=== PATIENT | female | born 1940 | race Caucasian/White ===

== ENCOUNTER 2016-03-01 13:00 | Outpatient (RCR) | payer MEDICARE | END 2016-04-16 | disposition home or self-care (01) | LOC: PT 13:00 | PROVIDERS: ATTEND Nurse Practitioner Family | DX: M47.22 Other spondylosis with radiculopathy, cervical region (principal) | CPT/HCPCS: 97001; 97012; 97035; 97110; G8984; G8985; G8986 ==

== ENCOUNTER 2016-04-02 08:29 | Emergency (ER) | payer MEDICARE ==
[~2016-04-02] VITALS: Ht 165.1 cm; Wt 66.8 kg
[~2016-04-02 08:29] MED LIST: CHLO4TAB PO; CTLP20T PO; ESCI20TA PO; ESTR1TAB24 PO; LSNP20T PO; MELO-255 PO; MELO7.5T PO; MULT-35 PO; NABU750T PO; PROM25TA5 PO; TRAZ100T92 PO
[2016-04-02] MEDS ORDERED: HYDROmorphone 1 MG/ML (DILAUDID) SYRINGE IM ONE (08:45)
[2016-04-02] MEDS ORDERED: ONDANSETRON 4 MG (ZOFRAN) ORAL DISSOLVE TAB PO ONE (08:45)
[2016-04-02] MEDS ORDERED: FLUT9.9S NS (09:03)
[2016-04-02 10:01] VITALS: BP 112/76
--- NOTE | 2016-04-02 10:02 | Diagnostic Imaging Report ---
INDICATION: Pain after a fall. Two views of the left shoulder were obtained. FINDINGS: The alignment is normal. There is no fracture or dislocation. The left lung is clear. Soft tissues are unremarkable. IMPRESSION: No focal abnormality in the left shoulder Dictated by: Dictated on workstation # [id number]
--- NOTE | 2016-04-02 10:04 | Diagnostic Imaging Report ---
INDICATION: Fall, left hip pain FINDINGS: Both hips are located. There is moderate articular joint space narrowing within both hips. There is no diastases of the pubic symphysis or the SI joints. Pelvic ring appears intact. Dedicated images of the left hip demonstrate no cortical disruption of the left femur. There are advanced degenerative features demonstrated within the lower lumbar spine. IMPRESSION: 1. Moderate bilateral hip osteoarthritic changes. There is no evidence of dislocation or plain film evidence of acute fracture. 2. Degenerative features are present at the SI joints, pubic symphysis as well as advanced endplate arthropathic change within the facets within the visualized portion of the lumbar spine. Dictated by: Dictated on workstation # [id number]
--- NOTE | 2016-04-02 10:06 | Diagnostic Imaging Report ---
INDICATION: Pain after a fall. Two views of the left humerus were obtained. FINDINGS: The alignment is normal. There is no fracture or dislocation. Soft tissues are unremarkable. IMPRESSION: No acute fracture or dislocation Dictated by: Dictated on workstation # [id number]
[2016-04-02] MEDS ORDERED: HYDR-3702 PO (10:28)
== END 2016-04-02 10:47 | disposition home or self-care (01) ==
LOC: ED 08:31
DX: S40.012A Contusion of left shoulder, initial encounter (principal); S70.02XA Contusion of left hip, initial encounter; W00.0XXA Fall on same level due to ice and snow, initial encounter; Y92.008 Other place in unspecified non-institutional (private) residence as the place of occurrence of the external cause
CPT/HCPCS: 73030; 73060; 73502; 96372; 99283; A9270; J1170

== ENCOUNTER → 2016-04-13 | Outpatient (CLI) | payer MEDICARE | LOC: RAD 12:13 | PROVIDERS: ATTEND Nurse Practitioner Family | DX: M25.512 Pain in left shoulder (principal); M75.122 Complete rotator cuff tear or rupture of left shoulder, not specified as traumatic; M19.012 Primary osteoarthritis, left shoulder | CPT/HCPCS: 73218 ==

== ENCOUNTER → 2016-05-23 | Outpatient (REF) | payer MEDICARE ==
[2016-05-23 13:27] LABS: ANION GAP 14.4 MEQ/L (3-15)
== END ==
LOC: LAB 12:49
PROVIDERS: ATTEND Family Medicine
DX: I10 Essential (primary) hypertension (principal)
CPT/HCPCS: 80048

== ENCOUNTER 2016-06-30 22:48 | Emergency (ER) | payer MEDICARE ==
[~2016-06-30] VITALS: Ht 165.1 cm; Wt 65.9 kg
[~2016-06-30 22:48] MED LIST changes: +FLUT9.9S NS; +HYDR-3702 PO
--- OUTSIDE RECORDS SUMMARY | 2016-06-30 22:53 | XMS REPORT | Continuity of Care Document ---
Author Author [facility] Organization [facility] Address Unknown Phone Unavailable Allergies Active Description Code Type Severity Reaction Onset Reported/Identified Relationship to Patient Clinical Status Yes codeine 1550 Ingredient mild to moderate syncope~ Nausea / Vomiting 11/16/2014 Yes codeine [id number] Drug Allergy Unknown N/A 04/02/2016 Medications Problems Date Dx Coded Attending Type Code Diagnosis Diagnosed By 02/15/1627 DARLEEN MARTINEZ APRN Ot 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 RADICULOPATHY, CE 02/15/1627 DARLEEN MARTINEZ APRN Ot R29.898 OTH SYMPTOMS AND SIGNS INVOLVING THE MUS 03/24/2012 Ot 789.06 03/24/2012 Ot V14.5 03/24/2012 Ot V58.69 07/10/2012 Ot 840.4 07/10/2012 Ot E928.9 07/10/2012 Ot V57.1 08/06/2012 Ot 272.4 08/06/2012 Ot 300.00 08/06/2012 Ot 477.9 08/06/2012 Ot 715.96 08/06/2012 Ot V58.69 08/06/2012 Ot V76.51 02/28/2014 BARBARA HUGO MD Ot 793.89 08/28/2014 Ot 719.41 08/28/2014 Ot 473.8 08/28/2014 Ot 793.81 08/28/2014 Ot V76.12 08/28/2014 Ot 611.72 08/28/2014 Ot 610.1 08/28/2014 Ot 610.2 08/28/2014 Ot 610.8 08/28/2014 Ot 611.89 08/28/2014 Ot 793.81 08/28/2014 Daily Silvano ARCE Ot 715.96 08/28/2014 Daily Silvano ARCE Ot 719.06 08/28/2014 BARBARA HUGO MD Ot 793.89 08/28/2014 LICHTY MD, BARBARA M Ot 793.89 08/28/2014 RHONDA ARCE, PLATT R Ot 401.9 08/28/2014 RHONDA ARCE, PLATT R Ot 780.4 08/28/2014 RHONDA ARCE, PLATT R Ot 790.99 09/12/2014 OANH ARCE, BARBARA M Ot 793.89 09/23/2014 OANH ARCE, BARBARA M Ot 272.4 09/23/2014 OANH ARCE, BARBARA M Ot 733.90 09/23/2014 OANH ARCE, BARBARA M Ot V82.81 11/12/2014 MICHELLE DARLEEN COAT PADDER Ot 401.9 11/27/2014 MICHELLE [facility] COAT PADDER Ot 401.9 11/30/2014 Daily, Silvano 715.36 Osteoarthrosis, localized, not specified whether primary or secondary, involving lower leg 12/02/2014 MICHELLE DARLEEN L COAT PADDER Ot 401.9 12/16/2014 Daily , Silvano Han Ot V43.65 12/16/2014 Daily , Silvano Han Ot V54.81 12/16/2014 Daily , Silvano Han Ot V57.1 01/08/2015 Daily , Silvano Han Ot M17.12 01/08/2015 Daily , Silvano C Ot Z98.89 01/28/2015 Daily, Silvano M17.11 Unilateral Primary Osteoarthritis, Right Knee 01/29/2015 OANH ARCE, BARBARA M Ot E78.5 01/29/2015 OANH ARCE, BARBARA M Ot I10 03/15/2015 Daily Silvano ARCE C Ot M17.11 03/15/2015 Daily , Silvano C Ot Z96.651 03/22/2015 Daily Silvano ARCE C Ot M17.11 03/22/2015 Daily , Silvano C Ot Z96.651 03/22/2015 Daily , Silvano C Ot M17.11 03/22/2015 Daily , Silvano Han Ot Z96.651 03/23/2015 Daily Silvano ARCE Ot M17.11 03/23/2015 Daily Silvano ARCE Ot Z96.651 04/01/2015 Daily Silvano ARCE Ot M17.11 04/01/2015 Daily , Silvano Han Ot Z96.651 04/25/2015 Daily Silvano ARCE Ot M17.11 UNILATERAL PRIMARY OSTEOARTHRITIS, RIGHT 04/25/2015 Daily Silvano ARCE Ot Z47.1 AFTERCARE FOLLOWING JOINT REPLACEMENT TAVARES 04/25/2015 Daily Silvano ARCE Ot Z96.651 PRESENCE OF RIGHT ARTIFICIAL KNEE JOINT 07/16/2015 WILGERS, DARLEEN L COAT PADDER Ot R73.9 HYPERGLYCEMIA, UNSPECIFIED 07/20/2015 WILGERS, DARLEEN L COAT PADDER Ot I10 ESSENTIAL (PRIMARY) HYPERTENSION 07/20/2015 WILGERS, DARLEEN L COAT PADDER Ot R73.9 HYPERGLYCEMIA, UNSPECIFIED 07/21/2015 WILGERS, DARLEEN L COAT PADDER Ot I10 ESSENTIAL (PRIMARY) HYPERTENSION 07/21/2015 WILGERS, DARLEEN L COAT PADDER Ot R73.9 HYPERGLYCEMIA, UNSPECIFIED 07/21/2015 WILGERS, DARLEEN L COAT PADDER Ot I10 ESSENTIAL (PRIMARY) HYPERTENSION 07/21/2015 WILGERS, DARLEEN L COAT PADDER Ot R73.9 HYPERGLYCEMIA, UNSPECIFIED 08/05/2015 WILGERS, DARLEEN L COAT PADDER Ot I10 ESSENTIAL (PRIMARY) HYPERTENSION 08/05/2015 WILGERS, DARLEEN L COAT PADDER Ot R73.9 HYPERGLYCEMIA, UNSPECIFIED 12/17/2015 WILGERS, DARLEEN L COAT PADDER Ot 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 RADICULOPATHY, CE 12/17/2015 WILGERS, DARLEEN L COAT PADDER Ot R29.898 OTH SYMPTOMS AND SIGNS INVOLVING THE MUS 01/03/2016 WILGERS, DARLEEN L COAT PADDER Ot 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 RADICULOPATHY, CE 01/05/2016 OANH ARCE, BARBARA Rangel Ot M48.02 SPINAL STENOSIS, CERVICAL REGION 01/05/2016 ONAH ARCE, BARBARA Rangel Ot M54.12 RADICULOPATHY, CERVICAL REGION 01/07/2016 WILGERS, DARLEEN L COAT PADDER Ot 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 RADICULOPATHY, CE 01/07/2016 WILGERS, DARLEEN L COAT PADDER Ot 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 RADICULOPATHY, CE 01/07/2016 WILGERS, DARLEEN L COAT PADDER Ot R29.898 OTH SYMPTOMS AND SIGNS INVOLVING THE MUS 01/07/2016 OANH ARCE, BARBARA Rangel Ot M48.02 SPINAL STENOSIS, CERVICAL REGION 01/07/2016 OANH ARCE, BARBARA Rangel Ot M54.12 RADICULOPATHY, CERVICAL REGION 01/11/2016 WILGERS, DARLEEN L COAT PADDER Ot 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 RADICULOPATHY, CE 01/11/2016 WILGERS, DARLEEN L COAT PADDER Ot R29.898 OTH SYMPTOMS AND SIGNS INVOLVING THE MUS 01/19/2016 WILGERS, DARLEEN L COAT PADDER Ot 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 RADICULOPATHY, CE 01/21/2016 WILGERS, DARLEEN L COAT PADDER Ot 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 RADICULOPATHY, CE 01/24/2016 OANH ARCE, BARBARA Rangel Ot M48.02 SPINAL STENOSIS, CERVICAL REGION 01/24/2016 OANH ARCE, BARBARA Rangel Ot M50.10 CERVICAL DISC DISORDER W RADICULOPATHY, 01/25/2016 OANH ARCE, BARBARA Rangel Ot M48.02 SPINAL STENOSIS, CERVICAL REGION 01/25/2016 OANH ARCE, BARBARA Rangel Ot M54.12 RADICULOPATHY, CERVICAL REGION 01/26/2016 WILGERS, DARLEEN L COAT PADDER Ot 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 RADICULOPATHY, CE 01/27/2016 WILGERS, DARLEEN L COAT PADDER Ot 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 RADICULOPATHY, CE 01/27/2016 WILGERS, DARLEEN L COAT PADDER Ot 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 RADICULOPATHY, CE 02/01/2016 WILGERS, DARLEEN L COAT PADDER Ot E78.5 HYPERLIPIDEMIA, UNSPECIFIED 02/01/2016 WILGERS, DARLEEN L COAT PADDER Ot R53.83 OTHER FATIGUE 02/01/2016 WILGERS, DARLEEN L COAT PADDER Ot E78.5 HYPERLIPIDEMIA, UNSPECIFIED 02/01/2016 WILGERS, DARLEEN L COAT PADDER Ot R53.83 OTHER FATIGUE 02/01/2016 WILGERS, DARLEEN L COAT PADDER Ot E78.5 HYPERLIPIDEMIA, UNSPECIFIED 02/01/2016 WILGERS, DARLEEN L COAT PADDER Ot R53.83 OTHER FATIGUE 02/02/2016 WILGERS, DARLEEN L COAT PADDER Ot E78.5 HYPERLIPIDEMIA, UNSPECIFIED 02/02/2016 WILGERS, DARLEEN L COAT PADDER Ot R53.83 OTHER FATIGUE 02/03/2016 WILGERS, DARLEEN L COAT PADDER Ot 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 RADICULOPATHY, CE 02/04/2016 WILGERS, DARLEEN L COAT PADDER Ot E78.5 HYPERLIPIDEMIA, UNSPECIFIED 02/04/2016 WILGERS, DARLEEN L COAT PADDER Ot F32.9 MAJOR DEPRESSIVE DISORDER, SINGLE EPISOD 02/04/2016 WILGERS, DARLEEN L COAT PADDER Ot F41.8 OTHER SPECIFIED ANXIETY DISORDERS 02/04/2016 WILGERS, DARLEEN L COAT PADDER Ot I95.9 HYPOTENSION, UNSPECIFIED 02/04/2016 WILGERS, DARLEEN L COAT PADDER Ot R53.83 OTHER FATIGUE 02/09/2016 OANH ARCE, BARBARA Rangel Ot M48.02 SPINAL STENOSIS, CERVICAL REGION 02/09/2016 OANH ARCE, BARBARA Rangel Ot M50.10 CERVICAL DISC DISORDER W RADICULOPATHY, 02/13/2016 WILGERS, DARLEEN L COAT PADDER Ot 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 RADICULOPATHY, CE 02/16/2016 WILGERS, DARLEEN L COAT PADDER Ot 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 RADICULOPATHY, CE 02/17/2016 WILGERS, DARLEEN L COAT PADDER Ot 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 RADICULOPATHY, CE 02/17/2016 WILGERS, DARLEEN L COAT PADDER Ot 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 RADICULOPATHY, CE 02/22/2016 WILGERS, DARLEEN L COAT PADDER Ot E78.5 HYPERLIPIDEMIA, UNSPECIFIED 02/22/2016 WILGERS, DARLEEN L COAT PADDER Ot F32.9 MAJOR DEPRESSIVE DISORDER, SINGLE EPISOD 02/22/2016 WILGERS, DARLEEN L COAT PADDER Ot F41.8 OTHER SPECIFIED ANXIETY DISORDERS 02/22/2016 WILGERS, DARLEEN L COAT PADDER Ot I95.9 HYPOTENSION, UNSPECIFIED 02/22/2016 WILGERS, DARLEEN L COAT PADDER Ot R53.83 OTHER FATIGUE 02/23/2016 WILGERS, DARLEEN L COAT PADDER Ot 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 RADICULOPATHY, CE 02/23/2016 WILGERS, DARLEEN L COAT PADDER Ot 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 RADICULOPATHY, CE 02/29/2016 WILGERS, DARLEEN L COAT PADDER Ot 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 RADICULOPATHY, CE 04/02/2016 SADIA CORDERO MD Ot S40.012A CONTUSION OF LEFT SHOULDER, INITIAL ENCO 04/02/2016 SADIA CORDERO MD Ot S70.02XA CONTUSION OF LEFT HIP, INITIAL ENCOUNTER 04/02/2016 SADIA CORDERO MD Ot W00.0XXA FALL ON SAME LEVEL DUE TO ICE AND SNOW, 04/02/2016 SADIA CORDERO MD Ot Y92.[address] IN [facility] NON-INSTIT[facility] ( PRIVATE) 04/05/2016 SADIA CORDERO MD Ot S40.012A CONTUSION OF LEFT SHOULDER, INITIAL ENCO 04/05/2016 SADIA CORDERO MD Ot S70.02XA CONTUSION OF LEFT HIP, INITIAL ENCOUNTER 04/05/2016 SADIA CORDERO MD Ot W00.0XXA FALL ON SAME LEVEL DUE TO ICE AND SNOW, 04/05/2016 SADIA CORDERO MD Ot Y92.[address] IN [facility] NON[facility]INST[facility] ( PRIVATE) 04/16/2016 WILGERS, DARLEEN L COAT PADDER Ot 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 RADICULOPATHY, CE 04/18/2016 WILGERS, DARLEEN L COAT PADDER Ot M19.012 PRIMARY OSTEOARTHRITIS, LEFT SHOULDER 04/18/2016 WILGERS, DARLEEN L COAT PADDER Ot M25.512 PAIN IN LEFT SHOULDER 04/18/2016 WILGERS, DARLEEN L COAT PADDER Ot M75.122 COMPLETE ROTATR-CUFF TEAR/RUPTR OF LEFT 04/19/2016 WILGERS, DARLEEN L COAT PADDER Ot M19.012 PRIMARY OSTEOARTHRITIS, LEFT SHOULDER 04/19/2016 WILGERS, DARLEEN L COAT PADDER Ot M25.512 PAIN IN LEFT SHOULDER 04/19/2016 WILGERS, DARLEEN L COAT PADDER Ot M75.122 COMPLETE ROTATR-CUFF TEAR/RUPTR OF LEFT 04/19/2016 WILGERS, DARLEEN L COAT PADDER Ot 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 RADICULOPATHY, CE 05/11/2016 WILGERS, DARLEEN L COAT PADDER Ot M19.012 PRIMARY OSTEOARTHRITIS, LEFT SHOULDER 05/11/2016 WILGERS, DARLEEN L COAT PADDER Ot M25.512 PAIN IN LEFT SHOULDER 05/11/2016 WILGERS, DARLEEN L COAT PADDER Ot M75.122 COMPLETE ROTATR-CUFF TEAR/RUPTR OF LEFT 05/25/2016 OANH ARCE, BARBARA Rangel Ot I10 ESSENTIAL (PRIMARY) HYPERTENSION 06/14/2016 Kami, Silvano M75.112 Incomplete Rotator Cuff Tear Or Rupture Of Left Shoulder, Not Specified As Traumatic 06/14/2016 OANH ARCE, BARBARA Rangel Ot I10 ESSENTIAL (PRIMARY) HYPERTENSION Procedures Code Description Performed By Performed On [id number] 12/10/2015 Results Test Result Range CBC - 03/01/12 17:25 MEAN CELL HGB 30.8 pg 27.0-33.0 MEAN CELL HGB CONCENTRATION 33.3 g/dL 32.0-37.0 MEAN CELL VOLUME 92.5 fl 80.0-100.0 RED BLOOD CELL 4.38 m/cumm 4.00-6.00 RED CELL DISTRIBUTION WIDTH 13.2 % 11.0- 15.6 WHITE BLOOD CELL 10.7 k/cumm 5.0-10.0 HEMOGLOBIN 13.5 gm/dL 12.0-16.0 HEMATOCRIT 40.5 % 37.0-47.0 PLATELET COUNT 253 k/cumm 150-400 METABOLIC PANEL, COMPREHN - 03/01/12 17:25 POTASSIUM 3.8 mmol/L 3.5-5.3 EST GFR (MDRD) > 60 mL/min > 59 ANION GAP 8 mmol/L 5-15 GLUCOSE 122 mg/dL 70-99 CALCIUM 9.1 mg/dL 8.5-10.1 BLOOD UREA NITROGEN 22 mg/dL 7-20 CREATININE 0.8 mg/dL 0.6-1.0 SODIUM 139 mmol/L 135-148 CHLORIDE 104 mmol/L 98-110 AST/SGOT 22 Units/L 10-37 ALT/SGPT 20 Units/L < 66 CARBON DIOXIDE 27 mmol/L 21-32 TOTAL PROTEIN 7.1 gm/dL 6.4-8.2 ALBUMIN 4.0 gm/dL 3.4-5.0 BILI TOTAL 0.3 mg/dL 0.0-1.0 ALKALINE PHOSPHATASE TOTAL 93 Units/L 50- 136 TROPONIN I - 03/01/12 17:25 TROPONIN I < 0.02 ng/mL < 0.07 LIPID PANEL - 03/02/12 05:22 CHOLESTEROL/HDL RATIO 3.9 < 5.0 LDL CHOLESTEROL 140 mg/dL < 100 VLDL CHOLESTEROL 23 mg/dL < 30 TRIGLYCERIDES 117 mg/dL < 150 CHOLESTEROL 220 mg/dL < 200 HDL CHOLESTEROL 57 mg/dL > 39 CK MB - 03/02/12 05:22 CK MB 1.6 ng/mL < 4.0 LIPASE - 03/02/12 05:22 LIPASE 157 Units/L 73-393 TROPONIN I - 03/02/12 05:22 TROPONIN I < 0.02 ng/mL < 0.07 CREATINE KINASE (CK/CPK) - 03/02/12 12:38 CREATINE KINASE (CK/CPK) 82 Units/L < 193 CK MB - 03/02/12 12:38 CK MB 1.2 ng/mL < 4.0 TROPONIN I - 03/02/12 12:38 TROPONIN I < 0.02 ng/mL < 0.07 Complete blood count (CBC) with automated white blood cell (WBC) differential - 02/01/16 10:40 Blood automated leukocyte count 6.93 4.0 -11.0 Erythrocytes 4.06 4.00-5.00 12.0-16.0;g/dL 13.3 12.0-15.5 Hematocrit 37.60 35.00-45.00 Automated erythrocyte mean corpuscular volume 93 80-100 Mean corpuscular hemoglobin (MCH) determination 32.8 26.0-34.0 Automated erythrocyte mean corpuscular hemoglobin concentration measurement ( mass/volume) 35.4 31.0-37.0 Erythrocyte distribution width 12.6 11.8 -15.6 Automated blood platelet count 268 150- 450 Automated blood platelet mean volume measurement 9.7 6.0-9.5 Automated neutrophil percentage 64 51- 67 Lymphocytes/100 leukocytes 25 20-46 Automated monocyte percentage 8 3-11 Eosinophil count auto 3 0-4 Automated basophil percentage 1 0-2 Automated blood neutrophil count 4.4 Blood lymphocytes count (number/volume) 1.7 Automated blood monocyte count 0.5 Blood absolute eosinophil count 0.2 Basophils 0.0 Comprehensive metabolic panel - 02/01/16 10:40 Sodium measurement 96 70-110 Carbon dioxide measurement 30 22-29 Serum or plasma anion gap 10.6 3-15 BLOOD UREA NITROGEN 17 7-18 CREATININE SERUM 0.87 0.6-1.2 Brucella species antibody panel (IgG, IgM) 20 10-20 Estimated glomerular filtration rate (GFR) 76.4 Estimated glomerular filtration rate (GFR) non- 63.1 OSMOLALITY,CALCULATED 268 280-300 CALCIUM 9.9 8.8-10.8 Calculated ionized calcium measurement 4.2 3.8-4.6 BILIRUBIN,TOTAL 0.8 0.1-1.0 Serum or plasma alkaline phosphatase measurement 64 38-126 ASPARTATE AMINO TRANSFERASE 17 15-37 ALANINE AMINOTRANSFERASE 24 30-65 Serum or plasma total protein measurement 7.7 6.4-8.5 Serum or plasma albumin measurement 4.2 3.4-5.0 Serum or plasma albumin/globulin mass ratio 1.200 1.1-1.8 THYROID STIMULATING HORMONE* - 02/01/16 10:40 THYROID STIMULATING HORMONE 1.18 0.46- 4.68 LIPID PANEL - 02/01/16 10:40 Cholesterol 218 50-200 HDL Cholesterol 63 40-60 Triglycerides 150 10-150 LDL CHOLESTEROL 125 50-130 VLDL Cholesterol, calc 30 4.00-40.00 Cholesterol.total/Cholesterol.in HDL 3.5 0.0-5.0 BASIC METABOLIC PANEL* - 05/23/16 12:45 Sodium measurement 92 70-110 CARBON DIOXIDE 25 22-29 Serum or plasma anion gap 14.4 3-15 BLOOD UREA NITROGEN 18 7-18 CREATININE SERUM 0.74 0.6-1.2 Brucella species antibody panel (IgG, IgM) 24 10-20 Estimated glomerular filtration rate (GFR) 92.1 Estimated glomerular filtration rate (GFR) non- 76.1 CALCIUM 10.0 8.8-10.8 Encounters ACCT No. Visit Date/Time Discharge Status Pt. Type Provider Facility Loc./Unit Complaint [id number] 03/01/2012 16:11:00 2011 16:56:00 DIS Outpatient Jelena ARCE, Elijah Solares [facility] [id number]
--- OUTSIDE RECORDS SUMMARY | 2016-06-30 22:55 | XMS REPORT | Continuity of Care Document ---
Author Author [facility] Organization [facility] Address Unknown Phone Unavailable Allergies Active Description Code Type Severity Reaction Onset Reported/Identified Relationship to Patient Clinical Status Yes codeine 1550 Ingredient mild to moderate syncope~ Nausea / Vomiting 11/16/2014 Yes codeine [id number] Drug Allergy Unknown N/A 04/02/2016 Medications Problems [...] BARBARA M Ot V82.81 11/12/2014 MICHELLE DARLEEN [employer] DRIVER Ot 401.9 11/27/2014 MICHELLE [facility] [employer] DRIVER Ot 401.9 11/30/2014 Daily, Silvano 715.36 Osteoarthrosis, localized, not specified whether primary or secondary, involving lower leg 12/02/2014 MICHELLE DARLEEN L [employer] DRIVER Ot 401.9 12/16/2014 Daily , Silvano Han [...] ARTIFICIAL KNEE JOINT 07/16/2015 WILGERS, DARLEEN L [employer] DRIVER Ot R73.9 HYPERGLYCEMIA, UNSPECIFIED 07/20/2015 WILGERS, DARLEEN L [employer] DRIVER Ot I10 ESSENTIAL (PRIMARY) HYPERTENSION 07/20/2015 WILGERS, DARLEEN L [employer] DRIVER Ot R73.9 HYPERGLYCEMIA, UNSPECIFIED 07/21/2015 WILGERS, DARLEEN L [employer] DRIVER Ot I10 ESSENTIAL (PRIMARY) HYPERTENSION 07/21/2015 WILGERS, DARLEEN L [employer] DRIVER Ot R73.9 HYPERGLYCEMIA, UNSPECIFIED 07/21/2015 WILGERS, DARLEEN L [employer] DRIVER Ot I10 ESSENTIAL (PRIMARY) HYPERTENSION 07/21/2015 WILGERS, DARLEEN L [employer] DRIVER Ot R73.9 HYPERGLYCEMIA, UNSPECIFIED 08/05/2015 WILGERS, DARLEEN L [employer] DRIVER Ot I10 ESSENTIAL (PRIMARY) HYPERTENSION 08/05/2015 WILGERS, DARLEEN L [employer] DRIVER Ot R73.9 HYPERGLYCEMIA, UNSPECIFIED 12/17/2015 WILGERS, DARLEEN L [employer] DRIVER Ot 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 RADICULOPATHY, CE 12/17/2015 WILGERS, DARLEEN L [employer] DRIVER Ot R29.898 OTH SYMPTOMS AND SIGNS INVOLVING THE MUS 01/03/2016 WILGERS, DARLEEN L [employer] DRIVER Ot 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 RADICULOPATHY, CE 01/05/2016 OANH ARCE, BARBARA Rangel Ot M48.02 SPINAL STENOSIS, CERVICAL REGION 01/05/2016 OANH ARCE, BARBARA Rangel Ot M54.12 RADICULOPATHY, CERVICAL REGION 01/07/2016 WILGERS, DARLEEN L [employer] DRIVER Ot 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 RADICULOPATHY, CE 01/07/2016 WILGERS, DARLEEN L [employer] DRIVER Ot 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 RADICULOPATHY, CE 01/07/2016 WILGERS, DARLEEN L [employer] DRIVER Ot R29.898 OTH SYMPTOMS AND SIGNS INVOLVING THE MUS 01/07/2016 OANH ARCE, BARBARA Rangel Ot M48.02 SPINAL STENOSIS, CERVICAL REGION 01/07/2016 OANH ARCE, BARBARA Rangel Ot M54.12 RADICULOPATHY, CERVICAL REGION 01/11/2016 WILGERS, DARLEEN L [employer] DRIVER Ot 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 RADICULOPATHY, CE 01/11/2016 WILGERS, DARLEEN L [employer] DRIVER Ot R29.898 OTH SYMPTOMS AND SIGNS INVOLVING THE MUS 01/19/2016 WILGERS, DARLEEN L [employer] DRIVER Ot 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 RADICULOPATHY, CE 01/21/2016 WILGERS, DARLEEN L [employer] DRIVER Ot 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 RADICULOPATHY, CE 01/24/2016 OANH ARCE, BARBARA Rangel Ot M48.02 SPINAL STENOSIS, CERVICAL REGION 01/24/2016 OANH ARCE, BARBARA Rangel Ot M50.10 CERVICAL DISC DISORDER W RADICULOPATHY, 01/25/2016 OANH ARCE, BARBARA Rangel Ot M48.02 SPINAL STENOSIS, CERVICAL REGION 01/25/2016 OANH ARCE, BARBARA Rangel Ot M54.12 RADICULOPATHY, CERVICAL REGION 01/26/2016 WILGERS, DARLEEN L [employer] DRIVER Ot 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 RADICULOPATHY, CE 01/27/2016 WILGERS, DARLEEN L [employer] DRIVER Ot 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 RADICULOPATHY, CE 01/27/2016 WILGERS, DARLEEN L [employer] DRIVER Ot 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 RADICULOPATHY, CE 02/01/2016 WILGERS, DARLEEN L [employer] DRIVER Ot E78.5 HYPERLIPIDEMIA, UNSPECIFIED 02/01/2016 WILGERS, DARLEEN L [employer] DRIVER Ot R53.83 OTHER FATIGUE 02/01/2016 WILGERS, DARLEEN L [employer] DRIVER Ot E78.5 HYPERLIPIDEMIA, UNSPECIFIED 02/01/2016 WILGERS, DARLEEN L [employer] DRIVER Ot R53.83 OTHER FATIGUE 02/01/2016 WILGERS, DARLEEN L [employer] DRIVER Ot E78.5 HYPERLIPIDEMIA, UNSPECIFIED 02/01/2016 WILGERS, DARLEEN L [employer] DRIVER Ot R53.83 OTHER FATIGUE 02/02/2016 WILGERS, DARLEEN L [employer] DRIVER Ot E78.5 HYPERLIPIDEMIA, UNSPECIFIED 02/02/2016 WILGERS, DARLEEN L [employer] DRIVER Ot R53.83 OTHER FATIGUE 02/03/2016 WILGERS, DARLEEN L [employer] DRIVER Ot 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 RADICULOPATHY, CE 02/04/2016 WILGERS, DARLEEN L [employer] DRIVER Ot E78.5 HYPERLIPIDEMIA, UNSPECIFIED 02/04/2016 WILGERS, DARLEEN L [employer] DRIVER Ot F32.9 MAJOR DEPRESSIVE DISORDER, SINGLE EPISOD 02/04/2016 WILGERS, DARLEEN L [employer] DRIVER Ot F41.8 OTHER SPECIFIED ANXIETY DISORDERS 02/04/2016 WILGERS, DARLEEN L [employer] DRIVER Ot I95.9 HYPOTENSION, UNSPECIFIED 02/04/2016 WILGERS, DARLEEN L [employer] DRIVER Ot R53.83 OTHER FATIGUE 02/09/2016 OANH ARCE, BARBARA Rangel Ot M48.02 SPINAL STENOSIS, CERVICAL REGION 02/09/2016 OANH ARCE, BARBARA Rangel Ot M50.10 CERVICAL DISC DISORDER W RADICULOPATHY, 02/13/2016 WILGERS, DARLEEN L [employer] DRIVER Ot 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 RADICULOPATHY, CE 02/16/2016 WILGERS, DARLEEN L [employer] DRIVER Ot 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 RADICULOPATHY, CE 02/17/2016 WILGERS, DARLEEN L [employer] DRIVER Ot 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 RADICULOPATHY, CE 02/17/2016 WILGERS, DARLEEN L [employer] DRIVER Ot 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 RADICULOPATHY, CE 02/22/2016 WILGERS, DARLEEN L [employer] DRIVER Ot E78.5 HYPERLIPIDEMIA, UNSPECIFIED 02/22/2016 WILGERS, DARLEEN L [employer] DRIVER Ot F32.9 MAJOR DEPRESSIVE DISORDER, SINGLE EPISOD 02/22/2016 WILGERS, DARLEEN L [employer] DRIVER Ot F41.8 OTHER SPECIFIED ANXIETY DISORDERS 02/22/2016 WILGERS, DARLEEN L [employer] DRIVER Ot I95.9 HYPOTENSION, UNSPECIFIED 02/22/2016 WILGERS, DARLEEN L [employer] DRIVER Ot R53.83 OTHER FATIGUE 02/23/2016 WILGERS, DARLEEN L [employer] DRIVER Ot 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 RADICULOPATHY, CE 02/23/2016 WILGERS, DARLEEN L [employer] DRIVER Ot 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 RADICULOPATHY, CE 02/29/2016 WILGERS, DARLEEN L [employer] DRIVER Ot 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 RADICULOPATHY, CE 04/02/2016 SADIA CORDERO MD Ot S40.012A CONTUSION OF LEFT SHOULDER, INITIAL ENCO 04/02/2016 SADIA CORDERO MD Ot S70.02XA CONTUSION OF LEFT HIP, INITIAL ENCOUNTER 04/02/2016 SADIA CORDERO MD Ot W00.0XXA FALL ON SAME LEVEL DUE TO ICE AND SNOW, 04/02/2016 SADIA CORDERO MD Ot Y92.[address] IN [facility] NON-INSTIT[facility] ( PRIVATE) 04/05/2016 SADIA CORDERO MD Ot S40.012A CONTUSION OF LEFT SHOULDER, INITIAL ENCO 04/05/2016 SADIA CORDERO MD Ot S70.02XA CONTUSION OF LEFT HIP, INITIAL ENCOUNTER 04/05/2016 SADIA CORDERO MD Ot W00.0XXA FALL ON SAME LEVEL DUE TO ICE AND SNOW, 04/05/2016 SADIA CORDERO MD Ot Y92.[address] IN [facility] NON[facility]INSTIT[facility] ( PRIVATE) 04/16/2016 WILGERS, DARLEEN L [employer] DRIVER Ot 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 RADICULOPATHY, CE 04/18/2016 WILGERS, DARLEEN L [employer] DRIVER Ot M19.012 PRIMARY OSTEOARTHRITIS, LEFT SHOULDER 04/18/2016 WILGERS, DARLEEN L [employer] DRIVER Ot M25.512 PAIN IN LEFT SHOULDER 04/18/2016 WILGERS, DARLEEN L [employer] DRIVER Ot M75.122 COMPLETE ROTATR-CUFF TEAR/RUPTR OF LEFT 04/19/2016 WILGERS, DARLEEN L [employer] DRIVER Ot M19.012 PRIMARY OSTEOARTHRITIS, LEFT SHOULDER 04/19/2016 WILGERS, DARLEEN L [employer] DRIVER Ot M25.512 PAIN IN LEFT SHOULDER 04/19/2016 WILGERS, DARLEEN L [employer] DRIVER Ot M75.122 COMPLETE ROTATR-CUFF TEAR/RUPTR OF LEFT 04/19/2016 WILGERS, DARLEEN L [employer] DRIVER Ot 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 RADICULOPATHY, CE 05/11/2016 WILGERS, DARLEEN L [employer] DRIVER Ot M19.012 PRIMARY OSTEOARTHRITIS, LEFT SHOULDER 05/11/2016 WILGERS, DARLEEN L [employer] DRIVER Ot M25.512 PAIN IN LEFT SHOULDER 05/11/2016 WILGERS, DARLEEN L [employer] DRIVER Ot M75.122 COMPLETE ROTATR-CUFF TEAR/RUPTR OF LEFT 05/25/2016 OANH ARCE, BARBARA Rangel Ot I10 ESSENTIAL (PRIMARY) HYPERTENSION 06/14/2016 Kami, Silvano M75.112 Incomplete Rotator Cuff Tear Or Rupture Of Left Shoulder, Not Specified As Traumatic 06/14/2016 OANH ARCE, BARBARA Rangel Ot I10 ESSENTIAL (PRIMARY) HYPERTENSION Procedures Code Description Performed By Performed On [id number] 12/10/2015 Results Test Result Range CBC - [...] Status Pt. Type Provider Facility Loc./Unit Complaint [id number] 03/01/2012 16:11:00 2011 16:56:00 DIS Outpatient Jelena ARCE, Elijah Solares [facility] [id number]
[2016-06-30] MEDS ORDERED: CITA20SO PO (23:21)
[2016-06-30] MEDS ORDERED: PROMETHAZINE 25 MG/ML (PHENERGAN) 1 ML VIAL IM ONE (23:30)
[2016-06-30] MEDS ORDERED: HYDROmorphone 1 MG/ML (DILAUDID) SYRINGE IM ONE (23:30)
[2016-07-01] MEDS ORDERED: FAMC500T17 PO (00:32)
[2016-07-01] MEDS ORDERED: HYDR-3702 PO (00:32)
[2016-07-01] MEDS ORDERED: ED- oxyCODONE/ACETAMINOPHEN 5MG-325MG (PERCOCET) 8 TABLETS/BTL PO ONE (01:20)
[2016-07-01] MEDS ORDERED: OXYC-109 PO (01:24)
[2016-07-01 02:04] VITALS: BP 136/70
--- NOTE | 2016-07-01 10:23 | Diagnostic Imaging Report ---
PROCEDURE: CT cervical spine without contrast. TECHNIQUE: Multiple contiguous axial images were obtained through the cervical spine without the use of intravenous contrast. Sagittal and coronal reformations were then performed. INDICATION: Neck pain after fall. COMPARISON: Noncontrast CT head from 08/28/2014. FINDINGS: No acute fracture or traumatic malalignment. Multilevel degenerative changes are present throughout the cervical spine and greatest in C6-C7 with posterior disc ossified complex resulting in no more than mild spinal stenosis. Multilevel uncovertebral and facet hypertrophy is also present resulting in scattered foci of mild/moderate neuroforaminal narrowing. Lung apices are clear. Airway is widely patent. No cervical lymphadenopathy. Stable calcifications in the central aspect of both cerebellar hemispheres. IMPRESSION: 1. No acute fracture or traumatic malalignment of the cervical spine. 2. Moderate to advanced cervical spondylosis. 3. Hyperdensities involving the bilateral cerebellar hemispheres are stable since CT head of 08/28/2014 and compatible with benign calcifications. 4. Findings are in general agreement with the preliminary report. Dictated by: Dictated on workstation # [id number]
== END 2016-07-01 02:06 | disposition home or self-care (01) ==
LOC: ED 22:50
DX: M54.2 Cervicalgia (principal); M47.892 Other spondylosis, cervical region
CPT/HCPCS: 72125; 96372; 99283; A9270; J1170; J2550

== ENCOUNTER → 2016-07-21 | Outpatient (CLI) | payer MEDICARE ==
[~2016-07-21] MED LIST changes: +CITA20SO PO; +FAMC500T17 PO; +OXYC-109 PO
--- NOTE | 2016-07-21 10:21 | Diagnostic Imaging Report ---
EXAMINATION: Left shoulder, 2 views. COMPARISON: April 02, 2016. INDICATION: 75-year-old female, status post left shoulder arthroplasty in May 2016. FINDINGS: There has been interval placement of a total reverse left shoulder prosthesis. The hardware appears intact. There is no abnormal surrounding lucency. The alignment of the humeral head component relative to the glenoid component appears unremarkable. The acromioclavicular joint is normally aligned. There are minimal acromioclavicular degenerative changes without large undersurface osteophyte. There is no acute fracture. IMPRESSION: 1. Intact total reverse left shoulder prosthesis without identified complication. 2. Minimal acromioclavicular degenerative changes. Dictated by: Dictated on workstation # [id number]
== END ==
LOC: RAD 09:13
PROVIDERS: ATTEND Orthopaedic Surgery
DX: Z98.890 Other specified postprocedural states (principal)
CPT/HCPCS: 73030

== ENCOUNTER 2016-08-11 13:45 | Outpatient (RCR) | payer MEDICARE ==
--- NOTE | 2016-06-26 10:59 | PT/OT/ST INITIAL EVALUATION ---
Department of Health and Human Services Form Approved [facility] Care Financing Administration OMB No. [id number] PLAN OF CARE/ASSESSMENT FOR OUTPATIENT REHABILITATION (Complete for Initial Claims Only) 1. PATIENT'S NAME Lisa Tabares 2. ACC # [id number] 3. [facility] [id number] 4. PROVIDER NO. [id number] 5. TYPE: PT 6. PRIOR HOSPITALIZATION NA 7. PRIMARY DX Status post left reverse total shoulder replacement 8. SECONDARY DX stiffness 9. ONSET DATE 05/30/2016 10. REFERRAL DATE NA 11. SOC. DATE 06/19/2016 12. TIME OF EVAL 1:54 p.m. 12. REFERRING PHYSICIAN Silvano Mcclure MD 13. CHARGES/UNITS NA 14. G CODES [id number] 15. PRIOR LEVEL OF FUNCTION; PERTINENT HISTORY (Prior therapy results, reason for referral.) S: Prior to therapy, the patient consented to today's evaluation and treatment. The patient is a 75-year-old female referred to physical therapy by Dr. Silvano Mcclure to address Status post left reverse total shoulder. Personal health rating: The patient does rate her overall and general health as excellent. Description/mechanism of injury: The patient states that she is right handed, but on April 02, she fell on the ice in her driveway and was unable to get up following this. The patient's neighbor then came over to assist her where she was able to get to the ER where x-rays were performed and negative for fractures. The pain continued following this for several weeks, so the patient went to see her primary care physician, who ordered an MRI, which showed a significantly torn rotator cuff on the left. The patient then went to see an orthopedist where it was deemed that a shoulder replacement was the best approach due to the severity of the rotator cuff tear. The patient underwent surgery for a total shoulder on 05/30/2016. The patient states following surgery she had difficulty with coughing and had increased bleeding at the incision site due to this with a hematoma that formed underneath the incision. The patient does state that since surgery she is guarded with all movement. She does wear her sling when she is in public, but does not wear it at home. The patient states prior to coming to therapy, 2 days ago, she had an episode of brown drainage coming from the incision on , Sunday, and Sunday following this evaluation. The patient does state the drainage eventually stopped, but this is concerning for her. The patient was advised to call her physician and let him know about this. The patient has had previous neck pathology with left upper extremity radiculopathy symptoms, but has had no issues with that since the shoulder replacement. The patient is right handed. Primary Complaint: The patient's primary complaint is that she is having difficulty such as holding the newspaper to turn the pages. Prior level of function: Includes the patient being unlimited in all activities, including working as a laboratory secretary. Current level of function: Currently the patient is having difficulty sleeping. She is unable to lift her left arm. She is having difficulty with activities, such as pulling up her pants, or using her left upper extremity for any activities as she is unable to do any lifting. Therapy History: The patient has had no previous physical therapy for this condition. No obstacles to delivery of care observed. Pain level: Maximum pain level is 7/10. The patient describes the pain as an achy sensation. Aggravating factors: Trying to use the left upper extremity. Relieving factors: Include leaving her left arm by her side. Past medical history: Includes spinal stenosis, osteoarthritis, bilateral total knee replacements and hypertension. Current medications: The patient is unsure of all of her medications, but will bring a list a future visit. Patient's Goal: The patient's goal for physical therapy is to be able to use the left arm for everything she needs to. 16. INITIAL ASSESSMENT/SAFETY PRECAUTIONS/MEDICAL COMPLICATIONS (Level of function at start of care. Be specific, use objective measures, list problems.) O: APPEARANCE AND OBSERVATION: The patient presents as an older female in apparently healthy condition. She does present to physical therapy without a sling. With ambulation she has no arm swing with movement. Upon observing the patient's incision it does not appear to be completely healed, however, it is not draining at this time. She does have significant bruising throughout the left anterior shoulder. PALPATION: With palpation, the patient does have induration throughout the para incision area with general swelling present throughout the left shoulder. No pitting edema is present. SPECIAL TESTS: Circumferential measures were taken at the axilla bilaterally. These measurements on the left were 31.8 cm, on the right 29.4 cm. RANGE OF MOTION/FLEXIBILITY: Active range of motion right shoulder flexion is 168 degrees, left 56 degrees. Right shoulder abduction 173 degrees, on the left 57 degrees. Right shoulder extension 80 degrees, not tested on the left. Internal and external rotation was 26 degrees on the right ad not tested on the left. External rotation was 71 degrees on the right and not tested on the left. Passive range of motion of the left shoulder was to approximately 90 degrees for both flexion and abduction at the end of manual therapy at this date. STRENGTH: Throughout the left upper extremity was not tested secondary to pain and guarding. Throughout the right upper extremity internal rotation 4+/5, external rotation 4/5, shoulder flexion 4+/5, abduction 5/5, elbow flexion 5/5 and elbow extension 4/5. TODAY'S TREATMENT: Following the initial evaluation manual therapy techniques were performed throughout the left shoulder for passive range of motion and contract/relax as able. Therapeutic exercise was then performed and issued as a home exercise program with emphasis on active assist range of motion at home. A vasopneumatic device with cold and compression was then performed to the right shoulder. The patient did have decreased swelling following this and decreased pain. 17. INITIAL POC: (Specify procedures, modalities, short and senior care goals) A: The patient presents to physical therapy with diagnosis of status post left reverse total shoulder replacement with resultant decreased active range of motion, decreased passive range of motion, decreased strength, increased pain, increased swelling. PROGNOSIS: This patient does have a good prognosis with regular therapy attendance and compliance with home exercise program. This patient is expected to benefit from physical therapy services in order to have increased active range of motion, increased strength for return to unlimited prior activities. OUTCOME ASSESSMENT: QuickDASH which did score 84% disability. INFORMED CONSENT: The diagnosis, prognosis, treatment plan, risks and expected outcomes were discussed with the patient and the patient did agree to today's established plan of care. SHORT TERM GOALS: 1. The patient to be independent and compliant with home exercise program in 1 week. 2. The patient will report maximal pain level 2/10 in 2 weeks in order to sleep at night. 3. The patient will have active range of motion left shoulder flexion to at least 90 degrees in 3 weeks in order to perform personal hygiene. 4. The patient will have left shoulder strength for flexion at least 3/5 in 4 weeks in order to complete household tasks. 5. The patient will have a QuickDASH no more than 30% disability in 6 weeks in order to return to functional activities at home, such as reading the paper. P: Plan to treat the patient 2 times per week for 6 weeks in order to address left reverse total shoulder replacement. Therapeutic treatments to include modalities to decrease pain, inflammation and swelling. Manual therapy techniques as indicated. Therapeutic exercise targeting active range of motion, postural stabilization, and patient education in home exercise program to be advanced as warranted. 18. FREQUENCY 2 times per week 19. DURATION 6 weeks 20. FUNCTIONAL LEVEL (End of claim period) 21. PHYSICIAN SIGNATURE ? ON FILE OR ENTER HERE: 22. DATE: I certify the need for these services furnished under this plan of care and if for partial hospitalization. 23. CERTIFICATION FROM THROUGH [facility]-700
== END 2016-08-14 11:13 | disposition home or self-care (01) ==
LOC: PT 13:45
PROVIDERS: ATTEND Orthopaedic Surgery
DX: M19.012 Primary osteoarthritis, left shoulder (principal); Z96.612 Presence of left artificial shoulder joint; M25.612 Stiffness of left shoulder, not elsewhere classified
CPT/HCPCS: 97016; 97110; 97140; 97161; G8984; G8985